=== PATIENT | female | born 2000 | race Two or more races ===

== ENCOUNTER 2018-04-23 16:33 | Emergency (ER) | payer OTHER ==
[~2018-04-23] VITALS: Ht 157.5 cm; Wt 59.0 kg
[2018-04-23 16:33] VITALS: BP 122/69
== END 2018-04-23 17:10 | disposition home or self-care (01) ==
LOC: ER 16:36
DX: H57.89 Other specified disorders of eye and adnexa (principal); W22.8XXA Striking against or struck by other objects, initial encounter; Y93.89 Activity, other specified; Y92.89 Other specified places as the place of occurrence of the external cause; Y99.8 Other external cause status
CPT/HCPCS: 99282; A4606; Z7610